=== PATIENT | female | born 1950 | race Caucasian/White ===

== ENCOUNTER 2024-06-20 07:30 | Day surgery (SDC) | payer OTHER ==
[~2024-06-20] VITALS: Ht 152.4 cm; Wt 40.8 kg
[~2024-06-20 07:30] MED LIST: CEFAZOLIN SOD 2 GM in D5W 50 ML IV ONE
[2024-06-20] MEDS ORDERED: ONDANSETRON HCL 4 MG/2 ML VIAL IVP PRN (09:30)
[2024-06-20] MEDS ORDERED: HYDROmorphone 1 MG/ML INJ. CARTRIDGE IVP PRN (09:30)
[2024-06-20] MEDS ORDERED: LR 1,000 ML IV SCH (09:30)
[2024-06-20] MEDS ORDERED: NS IRRIG SOLN 1000 ML IR ONE (09:41)
[2024-06-20] MEDS ORDERED: LIDOCAINE MPF 2% 20 MG/1 ML, 5 ML VIAL INH ONE (09:41)
[2024-06-20] MEDS ORDERED: MIDAZOLAM HCL 2 MG/2 ML VIAL (VERSED) ONE (09:41)
[2024-06-20] MEDS ORDERED: WATER FOR IRRIGATION,STERILE 1,000 ML IRRIG.SOLN IR ONE (09:41)
[2024-06-20] MEDS ORDERED: fentaNYL CITRATE/PF 100 MCG/2 ML AMP ONE (09:41)
[2024-06-20] MEDS ORDERED: LR 1,000 ML IV.SOLN IV ONE (09:41)
[2024-06-20] MEDS ORDERED: BUPIVACAINE /PF 0.25% 30 ML VIAL INJ ONE (09:41)
[2024-06-20] MEDS ORDERED: KETOROLAC TROMETHAMINE 30 MG VIAL ONE (09:41)
[2024-06-20 10:24] VITALS: O2SAT 97
[2024-06-20] MEDS ORDERED: D5/0.45 NS 1,000 ML IV SCH (11:00)
[2024-06-20] MEDS ORDERED: MORPHINE 2 MG/ML INJ. SYRINGE IVP PRN (11:15)
[2024-06-20 15:38] VITALS: BP_SYST 121; PULSE 69; RESP 17
== END 2024-06-20 13:08 | disposition home or self-care (01) ==
LOC: SMU 07:30 → SDS 07:30
PROVIDERS: ATTEND Colon & Rectal Surgery
DX: K40.90 Unilateral inguinal hernia, without obstruction or gangrene, not specified as recurrent (principal); I12.9 Hypertensive chronic kidney disease with stage 1 through stage 4 chronic kidney disease, or unspecified chronic kidney disease; N18.31 Chronic kidney disease, stage 3a; J44.9 Chronic obstructive pulmonary disease, unspecified; M81.0 Age-related osteoporosis without current pathological fracture; Z98.891 History of uterine scar from previous surgery; R63.4 Abnormal weight loss; Z90.89 Acquired absence of other organs; Z68.1 Body mass index [BMI] 19.9 or less, adult; Z79.899 Other long term (current) drug therapy
CPT/HCPCS: 87081; 49505; J3490; J0690; J1885; J3465; J3010; J7060; J7120; C1781